=== PATIENT | female | born 1955 | race Caucasian/White ===

== ENCOUNTER 2021-11-10 11:57 | Outpatient (CLI) | payer MEDICARE, BC | END 2021-11-10 11:58 | disposition home or self-care (01) | LOC: SCSMRI 11:57 | PROVIDERS: ATTEND Anesthesiology Pain Medicine | DX: M47.22 Other spondylosis with radiculopathy, cervical region (principal); M48.02 Spinal stenosis, cervical region; M89.38 Hypertrophy of bone, other site; Z98.1 Arthrodesis status | CPT/HCPCS: 72052; 72141 ==